=== PATIENT | female | born 1990 | race Caucasian/White ===

== ENCOUNTER 2018-01-26 03:13 | Emergency (ER) | payer BC, OTHER ==
[~2018-01-26] VITALS: Ht 160 cm; Wt 71.7 kg
--- OUTSIDE RECORDS SUMMARY | 2018-01-26 03:23 | XMS REPORT | Continuity of Care Document ---
Author Author [facility] Address Unknown Phone Unavailable Allergies There is no data. Medications There is no data. 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 Results There is no data. Encounters ACCT No. Visit Date/Time Discharge Status Pt. Type Provider Facility Loc./Unit Complaint [id number] 10/20/2013 15:07:00 10/20/2013 23:59:59 CLS Outpatient SADIA FRENCH DO
[2018-01-26 04:16] LABS: BILIRUBIN,URINE NEGATIVE (NEGATIVE); CLARITY,URINE CLEAR; COLOR,URINE YELLOW; GLUCOSE, URINE (UA) NEGATIVE (NEGATIVE); KETONES,URINE NEGATIVE (NEGATIVE); LEUKOCYTE ESTERASE ,URINE 3+ (NEGATIVE); NITRITE,URINE NEGATIVE (NEGATIVE); PH,URINE 7 (5-9); PROTEIN,URINE NEGATIVE (NEGATIVE); UROBILINOGEN,URINE NORMAL (NORMAL)
--- NOTE | 2018-01-26 04:17 | ED Respiratory ---
General Stated Complaint: POST OP ,SOB, CHEST TIGHTNESS Source: patient, spouse Exam Limitations: no limitations History of Present Illness Date Seen by Provider: Jan 26, 2018 Time Seen by Provider: 04:00 Initial Comments Patient presents to the ER by private conveyance with her spouse and chief complaint of some orthopnea, shortness of breath for the past couple days. She' s had swelling worse yesterday than today and her feet and every time she lays down her right eating get shorter. Yesterday she said the swelling came up above her knees into her thighs and was pitting. No cough fevers chills nausea vomiting diarrhea. She is a 5 days status post her second . She had an uneventful and delivery. She has no history of gestational hypertension, preeclampsia, gestational diabetes or other complications. Her child is doing well. She says she's felt very low in energy today and she went up to check her heart rate and blood pressure because she knows that is not normal for her and she found her blood pressure to be around 150 systolic and her heart rate to be in the 40s and 50s. She says normally when she is not her heart rate we'll run in the 80s and 90s. She does not smoke drink or use drugs. She says after her last she was back to work in 2 days. She's not really having any undue pain from her surgical scars and has no unexpected lochia.No personal or primary family history of coronary or other heart disease. No significant family disease history. She is urinating normally without hesitancy or frequency. She does not feel like she's having urinary retention. She has normal bowel movements with the help of senna. She is on prenatals as well as iron. Her hemoglobin was 8.5 and she left the hospital. Allergies and Home Medications Allergies Coded Allergies: Sulfa (Sulfonamide Antibiotics) (Verified Allergy, Unknown, 01/26/18) Patient Home Medication List Home Medication List Reviewed: Yes Review of Systems Review of Systems Constitutional: No chills, No diaphoresis, No fever, No malaise EENTM: No ear discharge, No hearing loss, No ear pain Respiratory: No cough; orthopnea; No phlegm; short of breath Cardiovascular: No chest pain, No palpitations Gastrointestinal: No abdominal pain, No constipation, No diarrhea, No nausea, No vomiting Genitourinary: No dysuria, No frequency, No hesitancy Past Nbtnrji-Pbjviq-[place] Hx Patient Social History Alcohol Use: Denies Use Recreational Drug Use: No Smoking Status: Never a Smoker Recent Foreign Travel: No Contact w/Someone Who Travel: No Physical Exam Vital Signs - First Documented 01/26/18 03:50 Temp 97.9 Pulse 63 Resp 19 B/P (MAP) 156/64 (94) Capillary Refill : Height: '" Weight: lbs. oz. kg; BMI Method: General Appearance: WD/WN, no apparent distress Eyes: Bilateral Eye Normal Inspection, Bilateral Eye PERRL, Bilateral Eye EOMI HEENT: PERRL/EOMI, pharynx normal Respiratory: chest non-tender, lungs clear, normal breath sounds, no respiratory distress, no accessory muscle use Cardiovascular: normal peripheral pulses, regular rate, rhythm (heart rate 45- 60), other (mild nonpitting bilateral edema) Gastrointestinal: soft, no organomegaly, other (well approximated clean dry non -erythematous or indurated Pfannenstiel incision wounds.) Progress/Results/Core Measures Suspected Sepsis SIRS Temperature: Pulse: Respiratory Rate: Laboratory Tests 01/26/18 04:08: White Blood Count 12.8H Blood Pressure / Mean: Laboratory Tests 01/26/18 04:08: Creatinine 0.58L, Platelet Count 393, Total Bilirubin 0.2 Results/Orders Lab Results Laboratory Tests Test 01/26/18 03:55 01/26/18 04:08 Range/Units Urine Color YELLOW Urine Clarity CLEAR Urine pH 7 5-9 Urine Specific [place] 1.010 L 1.016-1.022 Urine Protein NEGATIVE NEGATIVE Urine Glucose (UA) NEGATIVE NEGATIVE Urine Ketones NEGATIVE NEGATIVE Urine Nitrite NEGATIVE NEGATIVE Urine Bilirubin NEGATIVE NEGATIVE Urine Urobilinogen NORMAL NORMAL MG/DL Urine Leukocyte Esterase 3+ H NEGATIVE Urine RBC (Auto) 3+ H NEGATIVE Urine RBC 0-2 /HPF Urine WBC 2-5 /HPF Urine Squamous Epithelial Cells 5-10 /HPF Urine Crystals NONE /LPF Urine Bacteria TRACE /HPF Urine Casts NONE /LPF Urine Mucus NEGATIVE /LPF Urine Culture Indicated NO Urine Opiates Screen NEGATIVE NEGATIVE Urine Oxycodone Screen POSITIVE H NEGATIVE Urine Methadone Screen NEGATIVE NEGATIVE Urine Propoxyphene Screen NEGATIVE NEGATIVE Urine Barbiturates Screen NEGATIVE NEGATIVE Ur Tricyclic Antidepressants Screen NEGATIVE NEGATIVE Urine Phencyclidine Screen NEGATIVE NEGATIVE Urine Amphetamines Screen NEGATIVE NEGATIVE Urine Methamphetamines Screen NEGATIVE NEGATIVE Urine Benzodiazepines Screen NEGATIVE NEGATIVE Urine Cocaine Screen NEGATIVE NEGATIVE Urine Cannabinoids Screen NEGATIVE NEGATIVE White Blood Count 12.8 H 4.3-11.0 10^3/uL Red Blood Count 3.53 L 4.35-5.85 10^6/uL Hemoglobin 10.6 L 11.5-16.0 G/DL Hematocrit 32 L 35-52 % Mean Corpuscular Volume 91 80-99 FL Mean Corpuscular Hemoglobin 30 25-34 PG Mean Corpuscular Hemoglobin Concent 33 32-36 G/DL Red Cell Distribution Width 13.9 10.0-14.5 % Platelet Count 393 130-400 10^3/uL Mean Platelet Volume 9.8 7.4-10.4 FL Neutrophils (%) (Auto) 71 42-75 % Lymphocytes (%) (Auto) 19 12-44 % Monocytes (%) (Auto) 9 0-12 % Eosinophils (%) (Auto) 1 0-10 % Basophils (%) (Auto) 0 0-10 % Neutrophils # (Auto) 9.0 H 1.8-7.8 X 10^3 Lymphocytes # (Auto) 2.5 1.0-4.0 X 10^3 Monocytes # (Auto) 1.1 H 0.0-1.0 X 10^3 Eosinophils # (Auto) 0.1 0.0-0.3 10^3/uL Basophils # (Auto) 0.0 0.0-0.1 10^3/uL Sodium Level 141 135-145 MMOL/L Potassium Level 4.0 3.6-5.0 MMOL/L Chloride Level 108 H 98-107 MMOL/L Carbon Dioxide Level 21 21-32 MMOL/L Anion Gap 12 5-14 MMOL/L Blood Urea Nitrogen 7 7-18 MG/DL Creatinine 0.58 L 0.60-1.30 MG/DL Estimat Glomerular Filtration Rate > 60 BUN/Creatinine Ratio 12 Glucose Level 87 70-105 MG/DL Calcium Level 9.3 8.5-10.1 MG/DL Corrected Calcium 9.6 8.5-10.1 MG/DL Total Bilirubin 0.2 0.1-1.0 MG/DL Aspartate Amino Transf (AST/SGOT) 18 5-34 U/L Alanine Aminotransferase (ALT/SGPT) 38 0-55 U/L Alkaline Phosphatase 102 40-136 U/L Troponin I < 0.30 <0.30 NG/ML B-Type Natriuretic Peptide 196.1 H <100.0 PG/ML Total Protein 6.9 6.4-8.2 GM/DL Albumin 3.6 3.2-4.5 GM/DL My Orders Orders - TERRELL SHELTON Cbc With Automated Diff (01/26/18 04:06) Comprehensive Metabolic Panel (01/26/18 04:06) Drug Screen Stat (Urine) (01/26/18 04:06) Ua Culture If Indicated (01/26/18 04:06) Chest Pa/Lat (2 View) (01/26/18 04:06) BNP (01/26/18 04:06) Iv Heplock-Insert (Order) (01/26/18 04:06) Continuous Ekg Monitoring (01/26/18 04:11) Ekg Tracing (01/26/18 04:11) Troponin I (01/26/18 04:11) Vital Signs/I&O 01/26/18 03:50 Temp 97.9 Pulse 63 Resp 19 B/P (MAP) 156/64 (94) Capillary Refill : Progress Note : Time: 04:17 Progress Note Her borderline bradycardia based on her age is probably not dangerous or indicative of anything. She doesn't have very much appreciable edema in her legs and she says it was worse yesterday so it seems that is getting better. She may get some extra fluids versus just having the normal physiologic increase of intervascular volume that is slowly getting rid of. Couple that with her history of anemia we will check a CBC to make sure this has not gotten more dangerous but the reason she short of breath probably the combination of her anemia as well as her extra fluid volume reserve that she's getting rid of. We'll get an x-ray, BMP CBC CMP EKG troponin. I don't see anything particularly dangerous here and I think we can clinically rule out a PE since she's having 100% oxygen [place] on room air with a low heart rate. There is no history to suggest why should be having any kind of vagal tone because her heart rate to below such as a bladder distention etc. Lung sound good we'll get a chest x-ray to rule out any edema. After some reassurance she's feeling better. ECG Initial ECG Impression Date: Jan 26, 2018 Initial ECG Impression Time: 04:09 Initial ECG Rate: 42 Initial ECG Rhythm: S.Eber Initial ECG Intervals: Normal Initial ECG Impression: Nonspecific Changes, Sinus Bradycardia Initial ECG Comparisson: No Previous ECG Available Comment Sinus bradycardia without ST elevation or depression. Diagnostic Imaging Diagonstic Imaging: Xray Plain Films/CT/US/NM/MRI: chest (2v) Comments Unremarkable 2 view chest Reviewed: Reviewed by Me Departure Impression Primary Impression: Status post Additional Impression: Volume overload Qualified Codes: E87.79 - Other fluid overload Disposition: 01 HOME, SELF-CARE Condition: Stable Departure-Patient Inst. Decision time for Depature: 05:17 Referrals: STEVE ZAMBRANO MD (PCP/Family) Primary Care Physician Patient Instructions: DISCHARGE Add. Discharge Instructions: You are experiencing the expected volume contraction after delivery. The extra fluid that you had during your is being disposed of by your body and at times that fluid can back up into your lungs when you lay down flat from standing on your feet all day. It's okay to sleep in the recliner for the next few days while this is happening. Stay active and walk around the house or around the block. Follow-up with your OB provider or primary care doctor later in the week. If you begin to have chest pain or severe shortness of breath you should return to the ER. TERRELL SHELTON Jan 26, 2018 04:17
[2018-01-26 04:20] LABS: BASOPHILS % (AUTO) 0 % (0-10); EOSINOPHILS # (AUTO) 0.1 10^3/uL (0.0-0.3); EOSINOPHILS % (AUTO) 1 % (0-10); HEMATOCRIT 32 % (35-52); HEMOGLOBIN 10.6 G/DL (11.5-16.0); LYMPHOCYTES # (AUTO) 2.5 X 10^3 (1.0-4.0); LYMPHOCYTES % (AUTO) 19 % (12-44); MEAN CORPUSCULAR HEMOGLOBIN 30 PG (25-34); MEAN CORPUSCULAR HGB CONC 33 G/DL (32-36); MEAN CORPUSCULAR VOLUME 91 FL (80-99); MEAN PLATELET VOLUME 9.8 FL (7.4-10.4); MONOCYTES # (AUTO) 1.1 X 10^3 (0.0-1.0); MONOCYTES % (AUTO) 9 % (0-12); NEUTROPHILS % (AUTO) 71 % (42-75); PLATELET COUNT 393 10^3/uL (130-400); RED BLOOD COUNT 3.53 10^6/uL (4.35-5.85); RED CELL DISTRIBUTION WIDTH 13.9 % (10.0-14.5); WHITE BLOOD COUNT 12.8 10^3/uL (4.3-11.0)
[2018-01-26 04:24] LABS: BACTERIA,URINE TRACE /HPF; RBC,URINE 0-2 /HPF
[2018-01-26 04:28] LABS: AMPHETAMINE SCREEN, URINE NEGATIVE (NEGATIVE); BARBITURATE SCREEN URINE NEGATIVE (NEGATIVE); BENZODIAZEPINES SCREEN URINE NEGATIVE (NEGATIVE); CANNABINOID SCREEN, URINE NEGATIVE (NEGATIVE); COCAINE SCREEN URINE NEGATIVE (NEGATIVE); METHADONE STAT NEGATIVE (NEGATIVE); METHAMPHETAMINE SCREEN URINE S NEGATIVE (NEGATIVE); OPIATE SCREEN URINE NEGATIVE (NEGATIVE); OXYCODONE STAT POSITIVE (NEGATIVE); PROPOXYPHENE STAT NEGATIVE (NEGATIVE); TRICYCLIC ANTIDEPRESSANTS SCRE NEGATIVE (NEGATIVE)
[2018-01-26 04:42] LABS: ALANINE AMINOTRANSFERASE 38 U/L (0-55); ALBUMIN 3.6 GM/DL (3.2-4.5); ALKALINE PHOSPHATASE 102 U/L (40-136); BILIRUBIN,TOTAL 0.2 MG/DL (0.1-1.0); BUN/CREATININE RATIO 12; CALCIUM 9.3 MG/DL (8.5-10.1); CARBON DIOXIDE 21 MMOL/L (21-32); CHLORIDE 108 MMOL/L (98-107); CREATININE SERUM 0.58 MG/DL (0.60-1.30); GFR ESTIMATED > 60; GLUCOSE 87 MG/DL (70-105); SODIUM 141 MMOL/L (135-145); TOTAL PROTEIN 6.9 GM/DL (6.4-8.2)
[2018-01-26 05:30] VITALS: BP 132/60
--- NOTE | 2018-01-26 06:46 | Diagnostic Imaging Report ---
INDICATION: Dyspnea PA and lateral views of the chest are obtained. COMPARISON: No previous study is available for comparison at this time. FINDINGS: Heart size and pulmonary vasculature are within normal limits, and the lungs are clear, bilaterally. IMPRESSION: Unremarkable chest. Dictated by: Dictated on workstation # [id number]
== END 2018-01-26 05:30 | disposition home or self-care (01) ==
LOC: ER 03:19
DX: O99.285 Endocrine, nutritional and metabolic diseases complicating the puerperium (principal); E86.9 Volume depletion, unspecified; Z98.890 Other specified postprocedural states; Z88.2 Allergy status to sulfonamides
CPT/HCPCS: 36415; 71046; 80053; 80306; 81000; 83880; 84484; 85025; 93005

== ENCOUNTER → 2020-05-01 | Outpatient (CLI) | payer OTHER ==
--- NOTE | 2020-05-01 16:40 | Diagnostic Imaging Report ---
INDICATION: patient, survey. TECHNIQUE: Multiple real-time grayscale images were obtained over the gravid uterus. COMPARISON: None FINDINGS: A single live intrauterine fetus is seen measuring 24 weeks 3 days in size with sonographic EDC of 08/18/2020. The fetus is in cephalic presentation. Amniotic fluid is 15.25 cm. Placenta is posterior with no evidence of previa. heart rate is 152 bpm. Cervical length was 3.8 cm. Maternal adnexa were not well visualized but there was no free fluid. Normal-appearing kidneys and bladder were seen. Normal-appearing stomach was seen. Normal-appearing intracranial ventricles were seen. Four-chamber heart view appear normal. Three-vessel cord and cord insertion appear normal. Views of the spine were normal. Biometrical measurements are as follows: Biparietal 5.95 cm, age 24 weeks 3 days. Head circumference 22.08 cm, age 24 weeks 1 days. Abdominal circumference 19.90 cm, age 24 weeks 4 days. Femur length 4.42 cm, age 24 weeks 4 days. Sonographic estimate age: 24 weeks 3 days. Sonographic estimated date of delivery: 08/18/2020. Estimated Weight: 702 gm (+/- 103 gm). LMP percentile: 92%. heart rate: 152 beats per minute. number: 1 of 1. IMPRESSION: Single live intrauterine fetus measuring 24 weeks 3 days in size with no detectable abnormality. Dictated by: Dictated on workstation # [id number]
== END ==
LOC: RAD FS 12:51
PROVIDERS: ATTEND Family Medicine
DX: Z34.92 Encounter for supervision of normal pregnancy, unspecified, second trimester (principal); Z3A.24 24 weeks gestation of pregnancy
CPT/HCPCS: 76805

== ENCOUNTER → 2020-06-21 | Outpatient (CLI) | payer OTHER | LOC: LAB FS 08:43 | PROVIDERS: ATTEND Family Medicine | DX: R73.09 Other abnormal glucose (principal) | CPT/HCPCS: 36415; 82951; 82952 ==

== ENCOUNTER → 2020-07-10 | Outpatient (CLI) | payer OTHER ==
--- NOTE | 2020-07-10 16:46 | Diagnostic Imaging Report ---
INDICATION: Assessment for interval growth during . TECHNIQUE: Multiple real-time grayscale images were obtained over the gravid uterus. COMPARISON: 05/01/2020 FINDINGS: A single viable intrauterine currently in cephalic presentation. Normal amount of amniotic fluid. Placenta is posterior without previa. anatomic assessment was not obtained on this study. Maternal adnexa also not evaluated. Biometrical measurements are as follows: Biparietal 8.37 cm, age 33 weeks 5 days. Head circumference 29.57 cm, age 32 weeks 5 days. Abdominal circumference 29.18 cm, age 33 weeks 2 days. Femur length 6.74 cm, age 34 weeks 5 days. Sonographic estimate age: 33 weeks 5 days. Sonographic estimated date of delivery: 08/23/2020. Estimated Weight: 2232 gm (+/- 326 gm). LMP percentile: 22%. heart rate: 143 beats per minute. number: 1 of 1. IMPRESSION: 1. Limited obstetrical sonographic imaging demonstrates intrauterine currently in cephalic presentation. Sonographic estimated age is 33 weeks 5 days for estimated date of delivery 08/23/2020 approximately 5 days delayed compared to previous ultrasound dating. Dictated by: Dictated on workstation # [id number]
== END ==
LOC: RAD FS 14:51
PROVIDERS: ATTEND Family Medicine
DX: Z34.93 Encounter for supervision of normal pregnancy, unspecified, third trimester (principal); Z3A.33 33 weeks gestation of pregnancy
CPT/HCPCS: 76805